=== PATIENT | male | born 1995 | race Two or more races ===

== ENCOUNTER 2020-11-07 04:48 | Emergency (ER) | payer SELFPAY ==
[~2020-11-07] VITALS: Ht 165.1 cm; Wt 70.5 kg
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
[2020-11-07] MEDS ORDERED: IV NORMAL SALINE 1000ML BAG 1,000 ML IV SCH (05:30)
[2020-11-07] MEDS ORDERED: HYDROmorphone 2 MG/ML VIAL IVP ONE (05:30)
[2020-11-07] MEDS ORDERED: fentaNYL PF VIAL 100 MCG/2 ML VIAL IVP ONE (05:30)
[2020-11-07 05:34] LABS: BASO # 0.1 x10^3/uL (0.0-0.2); BASO % 1 % (0-3); EOS # 0.1 x10^3/uL (0.0-0.7); EOS % 1 % (0-3); HEMATOCRIT 44.5 % (39.0-53.0); HEMOGLOBIN 15.7 g/dL (13.0-17.5); LYMPH # 2.7 x10^3/uL (1.0-4.8); LYMPH % 34 % (24-48); MEAN CORPUSCULAR HEMOGLOBIN 31 pg (25-35); MEAN CORPUSCULAR HGB CONC 35 g/dL (31-37); MEAN CORPUSCULAR VOLUME 87 fL (79-100); MONO # 0.7 x10^3/uL (0.0-1.1); MONO % 9 % (0-9); NEUT # 4.4 x10^3/uL (1.8-7.7); NEUT % 56 % (31-73); PLATELET COUNT 309 x10^3/uL (140-400); RED BLOOD COUNT 5.12 x10^6/uL (4.30-5.70); RED CELL DISTRIBUTION WIDTH 13.4 % (11.5-14.5); WHITE BLOOD COUNT 7.9 x10^3/uL (4.0-11.0)
[2020-11-07 05:44] LABS: CALCIUM 8.5 mg/dL (8.5-10.1); CREATININE 0.8 mg/dL (0.7-1.3); POTASSIUM 3.3 mmol/L (3.5-5.1)
[2020-11-07 05:50] LABS: ALBUMIN 4.3 g/dL (3.4-5.0); ALBUMIN/GLOBULIN RATIO 1.2 (1.0-1.7); TOTAL BILIRUBIN 0.3 mg/dL (0.2-1.0); TOTAL PROTEIN 7.9 g/dL (6.4-8.2)
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
[2020-11-07 06:28] LABS: PROTHROMBIN TIME PATIENT 13.4 SEC (11.7-14.0)
[2020-11-07 08:27] VITALS: BP 128/73
== END 2020-11-07 08:45 | disposition short-term general hospital (02) ==
LOC: ER 04:48
DX: S01.312A Laceration without foreign body of left ear, initial encounter (principal); F10.129 Alcohol abuse with intoxication, unspecified; R04.0 Epistaxis; Y90.7 Blood alcohol level of 200-239 mg/100 ml; Y04.1XXA Assault by human bite, initial encounter; Y93.89 Activity, other specified; Y92.89 Other specified places as the place of occurrence of the external cause; Y99.8 Other external cause status
CPT/HCPCS: 36415; 70450; 71250; 72125; 80053; 85025; 85610; 96361; 96374; 99285; G0480; J3010; J7030